=== PATIENT | female | born 1995 | race Asian ===

== ENCOUNTER 2023-05-31 13:35 | Inpatient (IN) | payer BC ==
[2023-05-31 21:04] VITALS: BMI 25.7
[2023-05-31] MEDS ORDERED: Promethazine HCl 25 MG/ML VIAL IM PRN (21:07)
[2023-05-31] MEDS ORDERED: Ondansetron PF 4 MG/2 ML Vial IVP PRN (21:07)
[2023-05-31] MEDS ORDERED: HYDROcodone/Acetaminophen 5/325 mg Tablet PO PRN ×2 (21:07)
[2023-05-31] MEDS ORDERED: Ibuprofen 800 MG TAB PO PRN (21:07)
[2023-05-31] MEDS ORDERED: Lidocaine 1% (PF) 30 ML VIAL SC PRN (21:07)
[2023-05-31] MEDS ORDERED: Oxytocin 30 units/NS 500 ML 500 ML IV SCH ×2 (21:07)
[2023-05-31] MEDS ORDERED: hydrALAZINE 20 MG/ML VIAL SLOW IVP PRN (21:07)
[2023-05-31 21:39] LABS: Hematocrit 34.9 % (34.9-44.5); Hemoglobin 11.8 g/dL (12.0-15.5); Mean Corpuscular HGB CONC 33.8 g/dL (32.0-36.0); Mean Corpuscular Hemoglobin 28.4 pg (27.0-33.0); Mean Corpuscular Volume 83.9 fl (81.6-98.3); Platelet Count 176 10x3/uL (150-450); RBC Distribution Width 12.9 % (11.5-14.5); Red Blood Cell (RBC) Count 4.16 10x6/uL (3.90-5.03); White Blood Cell (WBC) Count 8.9 10x3/uL (3.5-10.5)
[2023-05-31] MEDS: Misoprostol 100 MCG TAB VAG SCH (21:50)
[2023-05-31 23:47] LABS: Syphilis Antibody Nonreactive (Nonreactive); Syphilis Antibody Index 0.06 S/CO (<1.00 Non-Reactive)
[2023-06-01] LABS: HBSAg Index 0.31 S/CO (0-0.99); Hep B Surf Ag - L&D Non-Reactive S/CO (NonReactive)
[2023-06-01] MEDS ORDERED: fentaNYL 50 mcg/mL 1 mL Vial SLOW IVP PRN (07:43)
[2023-06-01] MEDS: fentaNYL/Ropivacaine Epidural 100 ML ONE (07:58)
[2023-06-01] MEDS ORDERED: diphenhydrAMINE 50 MG/ML VIAL IVP PRN (08:33)
[2023-06-01] MEDS ORDERED: Ondansetron PF 4 MG/2 ML Vial IVP PRN (08:33)
[2023-06-01] MEDS ORDERED: ePHEDrine Sulfate 50 MG/10 ML VIAL SLOW IVP PRN (08:33)
[2023-06-01] MEDS ORDERED: Naloxone HCl 0.4 mg/ml Vial IVP PRN ×2 (08:33)
[2023-06-01] MEDS ORDERED: Lactated Ringer's 500 ML IV PRN (08:33)
[2023-06-01] MEDS ORDERED: Promethazine HCl 25 MG/ML VIAL IM PRN (08:33)
[2023-06-01] MEDS ORDERED: Moisturizing Cream (Eucerin) 113 GM JAR TOP PRN (08:33)
[2023-06-01] MEDS ORDERED: Acetaminophen 325 MG TAB PO PRN (08:33)
[2023-06-01] MEDS ORDERED: Communication Order-Pharmacy FS SCH (08:45)
[2023-06-01] MEDS ORDERED: fentaNYL 2 mcg/Ropivacaine 0.2% Epidural 100 ML CADD EPIDURAL SCH (08:45)
[2023-06-01] MEDS ORDERED: hydrALAZINE 20 MG/ML VIAL SLOW IVP PRN (16:43)
[2023-06-01] MEDS ORDERED: Bisacodyl 10 MG SUPP PR PRN (16:43)
[2023-06-01] MEDS ORDERED: Lanolin Ointment 7 GM TUBE TOP PRN (16:43)
[2023-06-01] MEDS ORDERED: Milk Of Magnesia 30 ML UDCUP PO PRN (16:43)
[2023-06-01] MEDS ORDERED: traMADol HCl 50 MG TAB PO PRN (16:43)
[2023-06-01] MEDS: Ferrous Sulfate 325 MG TAB PO SCH (17:20)
[2023-06-01] MEDS: Benzocaine-Menthol 82.5 ML CAN TOP PRN (19:53)
[2023-06-01] MEDS: Docusate 100 MG CAP PO SCH (19:54)
[2023-06-01] MEDS: traMADol HCl 50 MG TAB PO PRN (19:54)
[2023-06-01] MEDS: Preparation H Ointment 28 GM TUBE PR PRN (19:54)
[2023-06-02] MEDS: Ibuprofen 800 MG TAB PO SCH (00:19)
[2023-06-02] MEDS: Boostrix 0.5 ML (Tdap) VIAL (>/=7 yrs of age) IM ONE (08:00)
[2023-06-02] MEDS: Bupivacaine 0.25% HCL 30 ML VIAL ONE (08:00)
[2023-06-02] MEDS: Witch Hazel-Glycerin 1 EACH JAR TOP PRN (08:31)
[2023-06-03 07:52] VITALS: BP 108/64; TEMP 98.5
== END 2023-06-03 12:15 | disposition home or self-care (01) | DRG 807 ==
LOC: CSHLD 20:43 → CSHPED 06-01 16:50
PROVIDERS: ADMIT Obstetrics & Gynecology; ATTEND Obstetrics & Gynecology
PROC: 10E0XZZ Delivery of Products of Conception, External Approach (ICD-10-PCS; principal; 2023-06-01)
PROC: 0KQM0ZZ Repair Perineum Muscle, Open Approach (ICD-10-PCS; 2023-06-01)
PROC: 3E033VJ Introduction of Other Hormone into Peripheral Vein, Percutaneous Approach (ICD-10-PCS; 2023-06-01)
DX: O76 Abnormality in fetal heart rate and rhythm complicating labor and delivery (principal); Z37.0 Single live birth; O48.0 Post-term pregnancy; O70.1 Second degree perineal laceration during delivery; Z3A.40 40 weeks gestation of pregnancy
CPT/HCPCS: 36415; 51702; 85027; 86780; 86850; 86900; 86901; 87340